=== PATIENT | male | born 1995 | race African-American/Black ===

== ENCOUNTER 2023-09-19 19:37 | Emergency (ER) | payer BC ==
[~2023-09-19] VITALS: Ht 172.7 cm; Wt 59.0 kg
[2023-09-19 19:53] VITALS: TEMP 98.2
[2023-09-19 21:36] VITALS: BP 111/71; O2SAT 97
== END 2023-09-19 21:36 | disposition home or self-care (01) ==
LOC: ER 19:45
DX: S86.811A Strain of other muscle(s) and tendon(s) at lower leg level, right leg, initial encounter (principal); Z88.5 Allergy status to narcotic agent; X58.XXXA Exposure to other specified factors, initial encounter; Y93.89 Activity, other specified; Y92.89 Other specified places as the place of occurrence of the external cause; Y99.8 Other external cause status
CPT/HCPCS: 93971-TC